=== PATIENT | female | born 2000 | race African-American/Black ===

== ENCOUNTER 2019-09-26 22:02 | Observation (INO) | payer OTHER, SELFPAY ==
[2019-09-26 22:11] VITALS: BP 132/80; PULSE 96; RESP 20; O2SAT 96
--- NOTE | 2019-09-26 22:19 | DI.US.S_ITS ---
PROCEDURE: US PELVIC COMPLETE INDICATIONS: BLEEDING, CRAMPING TECHNIQUE: Real-time scanning was performed of the pelvic organs, with image documentation. Additional endovaginal scanning was necessary due to incomplete visualization of the adnexal and endometrial structures by transabdominal scanning. COMPARISON: None. FINDINGS: Transabdominal scanning: Limited scanning through the kidneys shows no hydronephrosis. No pathologic free abdominal or pelvic fluid. Endovaginal scanning: Uterus: Uterus is normal in size at 6.6 x 3.2 x 5 cm. The endometrium measures 5-6 mm in combined thickness. There is a potential uterine fibroid seen, which is not well-defined. Ovaries: The right ovary measures 2.3 x 1.7 x 1.6 cm. The left ovary measures 2.2 x 1.2 x 1 cm. The ovaries have a normal sonographic appearance. No adnexal masses are seen. IMPRESSION: No imaging explanation is found for the patient's presenting symptoms. Potential uterine fibroid. Note: No significant discrepancy from the preliminary report. Dictated by: Adryan Hernandez M.D. on 09/27/2019 at 8:41 Approved by: Adryan Hernandez M.D. on 09/27/2019 at 8:44
[2019-09-26] MEDS: SODIUM CHLORIDE 0.9% 1,000 ML 1000 ML IV (22:24)
[2019-09-26 22:51] LABS: Add Manual Diff / Slide Review NO; Alanine Aminotransferase 16 IU/L (<35); Albumin 4.5 g/dL (3.5-5.0); Albumin Globulin Ratio 1.2 (1.0-2.8); Alkaline Phosphatase 67 U/L (38-126); Aspartate Aminotransferase 35 IU/L (14-36); BUN Creatinine Ratio 17.1 (6-22); Basophils Absolute Auto 0 /uL (0-100); Basophils Percent Auto 0.2 % (0-2); Bilirubin Total 0.2 mg/dL (0.2-1.3); Blood Urea Nitrogen 12 mg/dL (7-17); Calcium 10.1 mg/dL (8.4-10.2); Carbon Dioxide 20 mmol/L (22-32); Chloride 109 mmol/L (98-107); Eosinophils Absolute Auto 0 /uL (0-450); Eosinophils Percent Auto 0.1 % (2-4); Estimated Glomerular Filt Rate > 60.0 mL/min (>60); Globulin 3.8 g/dL (1.7-4.1); Glucose 85 mg/dL (70-100); HEMOLYSIS < 15 (0-50); Hematocrit 32.3 % (36-46); Hemoglobin 10.1 g/dL (12.0-16.0); Lymphocytes Absolute Auto 1100 /uL (1100-4500); Lymphocytes Percent Auto 7.3 % (25-40); Mean Corpuscular HGB Conc 31.2 % (30-36); Mean Corpuscular Hemoglobin 22.6 PG (26-34); Mean Corpuscular Volume 72.4 fL (80-100); Monocytes Absolute Auto 1000 /uL (0-900); Neutrophils Absolute Auto 12400 /uL (1500-7000); Neutrophils Percent Auto 85.4 % (50-75); Platelet Count 369 X10^3/uL (150-400); Red Blood Cell Count 4.46 X10^6/uL (4.0-5.2); Red Cell Distribution Width 17.5 % (11.6-14.8); Sodium 141 mmol/L (137-145); Total Protein 8.3 g/dL (6.3-8.2); White Blood Cell Count 14.6 X10^3/uL (4.5-11.0)
[2019-09-26] MEDS: CEFAZOLIN 2 GM/100 ML FROZ.PIGGY IV (23:33)
[2019-09-26 23:54] LABS: Bacteria Urine Few (2-10); Culture Indicated Urine Specimen Cultured; Mucus Urine 1+ (Negative); RBC Urine 30-100/HPF (0-5/HPF); WBC Urine 0-1/HPF (0-5/HPF)
[2019-09-27] VITALS (9 sets, daily range): BP systolic 106–131; BP diastolic 54–87; PULSE 74–100; RESP 8–18; TEMP 36.3–37.7; O2SAT 98–100; BMI 28.1
--- NOTE | 2019-09-27 00:15 | PM.GYNHP.1 ---
History of Present Illness History of Present Illness Narrative: Libia Mcmanus is a 19 year old G1 presenting to the ED with cramping pelvic pain and heavy bleeding after intercourse. The patient reports that she was having consensual sex when her symptoms began, and that she presented to the ED by ambulance 1.5 hours after her symptoms began. She reports nausea and right sided lower back pain in the ambulance that have now resolved, and she denies fevers, chills, dysuria, ongoing vaginal leakage, or any other symptoms or complaints. She denies any contributory progressive care nurse history including no STIs or pelvic infections, no progressive care nurse surgery, no ovarian cysts or uterine fibroids, and no contributory medical or surgical history. [facility] Social History Smoking Status: Current every day smoker Meds Home Medications and Allergies Allergies Allergy/AdvReac Type Severity Reaction Status Date / Time No Known Drug Allergies Allergy Verified 09/26/19 22:23 Review of Systems Constitutional Constitutional: Reports system reviewed and no additional complaints, except as documented Cardiovascular Cardiovascular: Reports system reviewed; no additional complaints, except as documented Respiratory Respiratory: Reports system reviewed and no additional complaints, except as documented Gastrointestinal Gastrointestinal: Reports as per HPI Genitourinary Genitourinary: Reports as per HPI Hematologic/Lymphatic Hematologic/Lymphatic: Reports as per HPI Exam Vital Signs (past 8 hours): - 09/26/19 22:11 Pulse Rate 96 H Respiratory Rate 20 Blood Pressure 132/80 Pulse Oximetry 96 Oxygen Delivery Method Room Air GI Palpation: soft, No firm, No guarding, No rigid and No tender External Female Exam: external appearance normal Speculum Exam - Vagina: vaginal laceration (large, 3cm long and 1+cm deep right sulcal tear) and vaginal bleeding (scant) Speculum Exam - Cervix: normal appearance of the cervix and nontender Bimanual Exam- Vagina & Uterus: No cervical tenderness and uterus non-tender Bimanual Exam- Adnexa, other: normal adnexae and adnexae non-tender OB/External & Speculum: vaginal bleeding (scant) Objective Labs Result Diagrams: 09/27/19 00:15 09/26/19 22:30 Labs: Laboratory Results - last 24 hr 09/26/19 09/26/19 09/26/19 22:30 22:30 23:20 WBC 14.6 H RBC 4.46 Hgb 10.1 L Hct 32.3 L MCV 72.4 L MCH 22.6 L MCHC 31.2 RDW 17.5 H Plt Count 369 Neut % (Auto) 85.4 H Lymph % (Auto) 7.3 L [place] % (Auto) 7.0 Eos % (Auto) 0.1 L Baso % (Auto) 0.2 Neut # (Auto) 34726 H Lymph # (Auto) 1100 [place] # (Auto) 1000 H Eos # (Auto) 0 Baso # (Auto) 0 Sodium 141 Potassium 4.0 Chloride 109 H Carbon Dioxide 20 L BUN 12 Creatinine 0.70 Estimated GFR > 60.0 BUN/Creatinine Ratio 17.1 Glucose 85 Calcium 10.1 Total Bilirubin 0.2 AST 35 ALT 16 Alkaline Phosphatase 67 Total Protein 8.3 H Albumin 4.5 Globulin 3.8 Albumin/Globulin Ratio 1.2 Urine RBC 30-100/hpf H Urine WBC 0-1/hpf Urine Bacteria Few (2-10) H Urine Mucus 1+ H Ur Culture Indicated? Specimen cultured Micro UA Comment * Assessment & Plan Assessment & Plan narrative: Though the patient is not currently having large amounts of visible vaginal bleeding, the extent of her laceration and especially the depth of extension cannot be assessed adequately at bedside due to patient discomfort with exam. The potential for ongoing hematoma formation or growth or extension into surrounding pelvic structures necessitates examination under anesthesia. If no such extension is found, anticipate laceration repair, vaginal packing, and admission for serial H&H. The patient was counselled that laparoscopy or laparotomy may be necessary if other pelvic structures such as bladder or bowel are found to be involved, and vocalized understanding of the risks and benefits of these procedures. All questions were answered. - Patient receiving Ancef in ED prior to OR - NPO - IV fluids
[2019-09-27 00:21] LABS: Hematocrit 29.8 % (36-46); Hemoglobin 9.2 g/dL (12.0-16.0)
[2019-09-27] MEDS: LACTATED RINGERS 1,000 ML 100 ML IV (01:00)
--- NOTE | 2019-09-27 01:06 | ED_ITS ---
HPI - Female Genitourinary General Chief complaint: Vaginal Bleeding Stated complaint: Dizzy, Nausea Time Seen by Provider: 09/26/19 22:05 Source: patient and EMS Mode of arrival: EMS Limitations: no limitations History of Present Illness HPI Narrative: 19F non smoker without significant medical history presents by EMS for evaluation of severe pelvic pain and heavy vaginal bleeding after sexual intercourse about 90 minutes prior to her arrival. She states she is not routinely sexually active and had intercourse with a male whom at a very large penis. She states she felt a sudden severe pain followed by significant bleeding, the pain radiated to her back. She takes no blood thinners and denies no abdominal pain. She has been a bit nauseated and has felt somewhat lightheaded. MD Complaint: vaginal bleeding Onset (ago): minute(s) Location: other Severity: moderate Quality: Sharp Duration: intermittent Relieving factors: none Exacerbating factors: intercourse Vaginal discharge: blood Sexual activity: New Sexual Partners Patient : No Associated symptoms: denies other symptoms Related Data Allergies Allergy/AdvReac Type Severity Reaction Status Date / Time No Known Drug Allergies Allergy Verified 09/26/19 22:23 Review of Systems Constitutional Constitutional: Denies chills, Denies fatigue, Denies fever(s), Denies frequent falls, Denies lethargy and Reports weakness Eyes Eyes: Denies change in vision, Denies eye discharge, Denies irritation and Denies loss of vision ENT Ears, Nose, Mouth, and Throat: Denies change in voice, Denies dizziness, Denies neck pain, Denies sore throat and Denies throat swelling Cardiovascular Cardiovascular: Denies chest pain, Denies irregular heart rhythm, Denies lightheadedness, Denies palpitations, Denies dyspnea, Denies dyspnea on exertion and Denies orthopnea Respiratory Respiratory: Denies cough, Denies dyspnea, Denies dyspnea on exertion and Denies wheezing Gastrointestinal Gastrointestinal: Denies abdominal pain, Denies change in bowel habits, Denies diarrhea, Denies nausea and Denies vomiting Genitourinary Genitourinary: Reports abnormal vaginal bleeding, Denies hematuria, Denies flank pain, Denies urinary incontinence and Denies urinary urgency Musculoskeletal Musculoskeletal: Denies back pain, Denies muscle weakness, Denies neck pain, Denies numbness and Denies tingling Integumentary/Breasts Skin/Breast: Denies pruritus, Denies erythema, Denies rash and Denies wounds Neurologic Neurologic: Denies behavioral changes, Denies confusion, Denies dizziness, Denies frequent falls, Denies loss of vision, Denies numbness, Denies tingling and Reports weakness Psychiatric Psychiatric: Denies anxiety, Denies behavioral changes, Denies confusion, Denies depression, Denies homicidal ideation and Denies suicidal ideation Endocrine Endocrine: Denies fatigue, Denies flushing and Denies palpitations Hematologic/Lymphatic Hematologic/Lymphatic: Denies easy bruising Allergic/Immunologic Allergic/Immunologic: Denies urticaria, Denies throat swelling and Denies wheezing Patient History Substance Use Type: does not use Exam Narrative Exam Narrative: GENERAL: [19] year old patient appears stated age. Well- nourished, well-developed patient, in mild distress. HEAD: Atraumatic. Normocephalic. EYES: Pupils equal round and reactive. Extraocular motions intact. No scleral icterus. No injection or drainage. ENT: Nose without bleeding, purulent drainage. Throat without erythema, tonsillar hypertrophy or exudate. Airway patent. NECK: Trachea midline. Non tender CARDIOVASCULAR: Regular rate and rhythm without murmurs, gallops, or rubs. RESPIRATORY: Clear to auscultation. Breath sounds equal bilaterally. No wheezes, rales, or rhonchi. GASTROINTESTINAL: Abdomen soft, non-tender, nondistended. : Pelvic performed with patient's permission and female nursing agriculture laboratory technician at bedside. There is minimal bleeding and some fresh clot, source is apparently a 3 cm laceration with minimal active bleeding in posterior R fornix EXTREMITIES: No edema or joint tenderness. BACK: Nontender without deformity or crepitance. No flank tenderness. NEURO: AOx3. SKIN: No rash or erythema of visible areas Initial Vital Signs Initial Vital Signs: Vital Signs Pulse Rate 96 H 09/26/19 22:11 Respiratory Rate 20 09/26/19 22:11 Blood Pressure 132/80 09/26/19 22:11 Pulse Oximetry 96 09/26/19 22:11 Course Orders Ordered: ED Orders 09/26/19 22:19 US pelvic complete Stat 09/26/19 22:30 Complete Blood Count AUTO DIFF Stat Comprehensive Metabolic Panel Stat 09/26/19 23:20 Urine Culture Stat Urine Microscopic Stat 09/27/19 00:15 Hemoglobin and Hematocrit Stat Type and Screen Stat Lactated Ringer's (Lactated Ringers) 1,000 mls @ 100 mls/hr IV CONT JESSICA Lactated Ringer's (Lactated Ringers) 1,000 mls @ 42 mls/hr IV CONT JESSICA Discontinued Medications Sodium Chloride (Normal Saline 0.9%) 1,000 mls @ 1,000 mls/hr IV BOLUS ONE Stop: 09/26/19 23:18 Last Infusion: 09/26/19 23:41 Dose: 0 mls/hr Documented by: Infusion: 09/26/19 22:48 Dose: 1,000 mls/hr Documented by: Infusion: 09/26/19 22:24 Dose: 0 mls/hr Documented by: Admin: 09/26/19 22:24 Dose: 1,000 mls/hr Documented by: LAVERN Cefazolin Sodium/Dextrose (Ancef) 2 gm in 100 mls @ 200 mls/hr IV NOW ONE Stop: 09/26/19 23:58 Last Infusion: 09/27/19 00:05 Dose: 0 mls/hr Documented by: Admin: 09/26/19 23:33 Dose: 200 mls/hr Documented by: OSCAR Consultations Consultation #1: call to customer service professional OB ([place]) to discuss plans. She will come see patient at bedside and perform her own exam. After which she elects to take to the OR for exam under anesthesia Vital Signs Vital signs: Vital Signs - 8 hr 09/26/19 22:11 Pulse Rate 96 H Respiratory Rate 20 Blood Pressure 132/80 Pulse Oximetry 96 MDM - Female Genitourinary Lab Data Result diagrams: 09/27/19 00:15 09/26/19 22:30 Labs: Lab Results 09/26/19 09/26/19 09/26/19 Range/Units 22:30 22:30 23:20 WBC 14.6 H (4.5-11.0) X10^3/uL RBC 4.46 (4.0-5.2) X10^6/uL Hgb 10.1 L (12.0-16.0) g/dL Hct 32.3 L (36-46) % MCV 72.4 L (80-100) fL MCH 22.6 L (26-34) PG MCHC 31.2 (30-36) % RDW 17.5 H (11.6-14.8) % Plt Count 369 (150-400) X10^3/uL Neut % (Auto) 85.4 H (50-75) % Lymph % (Auto) 7.3 L (25-40) % [place] % (Auto) 7.0 (3-14) % Eos % (Auto) 0.1 L (2-4) % Baso % (Auto) 0.2 (0-2) % Neut # (Auto) 03627 H (7207-3538) /uL Lymph # (Auto) 1100 (6246-7968) /uL [place] # (Auto) 1000 H (0-900) /uL Eos # (Auto) 0 (0-450) /uL Baso # (Auto) 0 (0-100) /uL Sodium 141 (137-145) mmol/L Potassium 4.0 (3.4-5.1) mmol/L Chloride 109 H (98-107) mmol/L Carbon Dioxide 20 L (22-32) mmol/L BUN 12 (7-17) mg/dL Creatinine 0.70 (0.52-1.04) mg/dL Estimated GFR > 60.0 (>60) mL/min BUN/Creatinine Ratio 17.1 (6-22) Glucose 85 (70-100) mg/dL Calcium 10.1 (8.4-10.2) mg/dL Total Bilirubin 0.2 (0.2-1.3) mg/dL AST 35 (14-36) IU/L ALT 16 (<35) IU/L Alkaline Phosphatase 67 (38-126) U/L Total Protein 8.3 H (6.3-8.2) g/dL Albumin 4.5 (3.5-5.0) g/dL Globulin 3.8 (1.7-4.1) g/dL Albumin/Globulin Ratio 1.2 (1.0-2.8) Urine RBC 30-100/hpf H (0-5/HPF) Urine WBC 0-1/hpf (0-5/HPF) Urine Bacteria Few (2-10) H (None) Urine Mucus 1+ H (Negative) Ur Culture Indicated? Specimen cultured Micro UA Comment * Blood Type 09/27/19 09/27/19 Range/Units 00:15 00:15 WBC (4.5-11.0) X10^3/uL RBC (4.0-5.2) X10^6/uL Hgb 9.2 L (12.0-16.0) g/dL Hct 29.8 L (36-46) % MCV (80-100) fL MCH (26-34) PG MCHC (30-36) % RDW (11.6-14.8) % Plt Count (150-400) X10^3/uL Neut % (Auto) (50-75) % Lymph % (Auto) (25-40) % [place] % (Auto) (3-14) % Eos % (Auto) (2-4) % Baso % (Auto) (0-2) % Neut # (Auto) (5417-6929) /uL Lymph # (Auto) (4255-2595) /uL [place] # (Auto) (0-900) /uL Eos # (Auto) (0-450) /uL Baso # (Auto) (0-100) /uL Sodium (137-145) mmol/L Potassium (3.4-5.1) mmol/L Chloride (98-107) mmol/L Carbon Dioxide (22-32) mmol/L BUN (7-17) mg/dL Creatinine (0.52-1.04) mg/dL Estimated GFR (>60) mL/min BUN/Creatinine Ratio (6-22) Glucose (70-100) mg/dL Calcium (8.4-10.2) mg/dL Total Bilirubin (0.2-1.3) mg/dL AST (14-36) IU/L ALT (<35) IU/L Alkaline Phosphatase (38-126) U/L Total Protein (6.3-8.2) g/dL Albumin (3.5-5.0) g/dL Globulin (1.7-4.1) g/dL Albumin/Globulin Ratio (1.0-2.8) Urine RBC (0-5/HPF) Urine WBC (0-5/HPF) Urine Bacteria (None) Urine Mucus (Negative) Ur Culture Indicated? Micro UA Comment Blood Type A Positive Point of Care Testing Test Results Negative Urine Dip Bedside Urine Glucose 100 mg/dl Bedside Urine Bilirubin - Negative Bedside Urine Ketone +/- 5 Urine Specific [place] 1.025 Bedside Urine Occult Blood +++ Bedside Urine pH 6.0 Bedside Urine Protein +/- 15 Bedside Urine Urobilinogen - Negative Bedside Urine Nitrite - Negative Bedside Urine Leukocytes +/- 15 Esterase Discharge Plan Departure Patient Disposition: Admitted as Observation Clinical Impression: PCB (post coital bleeding), Vaginal laceration Admit Date/Time: 09/27/19 00:30 Admit Provider: Roxanne Ba
--- NOTE | 2019-09-27 01:28 | SUR.OPER ---
Lithotomy on padded OR bed, head on pillow, arms secured on padded arm boards at <90 degrees abduction. Legs secured in padded yellow fins stirrups.
[2019-09-27] MEDS: SILVER NITRATE STICK 1 EACH TOP (01:48)
--- NOTE | 2019-09-27 02:04 | PM.OP.1 ---
Operative Date/Time/Diagnoses Date of procedure: 09/27/19 Time of procedure: 01:15 Pre-op diagnosis: Post coital vaginal laceration Post-op diagnosis: same Procedure & Clinicians Procedure: Exam under anesthesia with laceration repair Same procedure as scheduled: Yes Indications: Ongoing bleeding from vaginal laceration Surgeon: Roxanne Ba Click Yes if Unassisted: Yes Anesthesia Type: General Operative Notes Findings: 3 cm long by 1 cm deep laceration through vaginal mucosa of right vaginal sulcus, light ongoing bleeding.. Palpable to extent of laceration, no extension into peritoneum, bowel, bladder. Scattered first-degree lacerations and mucosal abrasions, all hemostatic. Closure Type: primary Specimen(s): none sent Applied: catheter Estimated Blood Loss (mL): 10 Blood products transfused: none Procedure in detail: After proper consents were obtained, the patient was taken to the operating room where general anesthesia was obtained. She was prepped and draped in the normal sterile fashion in the dorsal lithotomy position. Right angle retractors were used to obtain visualization of the above laceration, and the general shape and locations requiring hemostasis were noted. 2-0 [address] was used to place 3 interrupted sutures in the deep part of the laceration, with good subsequent hemostasis. One area of mucosal edge was noted to be oozing and hemostasis was obtained with silver nitrate. Pressure was applied with sponge sticks. After hemostasis was noted to have been obtained, a Brandt catheter was placed in the bladder, and 1 inch iodoform gauze packing placed in the vagina. The patient tolerated the procedure well, and was taken to the PACU in stable condition. The patient had received Ancef prophylaxis in the emergency room prior to transfer. Complications: none Post-operative Condition: stable Disposition: Acute Care Plan for aftercare: Vaginal packing and brandt catheter until midday, serial CBCs
--- NOTE | 2019-09-27 02:19 | SUR.PHASEI ---
Dr. Marquez notified regarding mild ST elevation. No new orders.
--- NOTE | 2019-09-27 02:28 | SUR.PHASEI ---
Report called to Joan
--- NOTE | 2019-09-27 02:47 | SUR.PHASEI ---
Patient transferred to the floor with belongings bag, and valuables bag with wallet and phone. VS stable. Report given to Joan. IV saline locked. Dorie-pad CDI, packing in place. Patient had asked how she was to tell him that she couldn't have sex. Patient denied being in a relationship, stated she was not forced to have sex. Joan notified.
--- NOTE | 2019-09-27 03:40 | PC.NURSE ---
Admitted from, PACU, diagnosed with vaginal laceration & repair. Denies any pain & peir pad CDI, no bleeding noted. [place] patent clear yellow urine. Oriented to her room, showed how to use her call light TV & bed controls. Instructed not get OOB without any assistance. Call light within reached, willl COnt. POc & monitor.
[2019-09-27 07:03] LABS: Hematocrit 28.8 % (36-46); Hemoglobin 9.1 g/dL (12.0-16.0)
[2019-09-27 07:53] LABS: HEMOLYSIS < 15 (0-50); Iron 22 ug/dL (37-170)
[2019-09-27 08:03] LABS: Percent Iron Saturation 5 % (15-50); Total Iron Binding Capacity 453 ug/dL (265-497); Transferrin 403 mg/dL (206-381)
[2019-09-27] MEDS: SODIUM CHLORIDE 0.9% FLUSH 10 ML IV (09:46)
--- NOTE | 2019-09-27 12:00 | PM.PNPO.1 ---
Subjective Subjective Date Patient Seen: 09/27/19 Time Patient Seen: 12:00 Interval history: Patient reports feeling well this AM, is tolerating PO, ambulating, passing flatus, denies abdominal pain, fevers, chills, diarrhea, chest pain, or any other complaints. Patient reports a long history of anemia symptoms, has never been evaluated for hemoglobinopathy. Discussed events surrounding laceration with patient, and patient reiterates that she was having consensual sex. We discussed resources should her sexual activity be coerced, discussed the importance of lubricant and foreplay to female sexual function and health, and discussed that she should have nothing in the vagina for 4 weeks and precautions for return. Exam Vital Signs (past 8 hours): - 09/27/19 04:35 09/27/19 05:05 09/27/19 05:35 Temperature 99.8 F H Pulse Rate 86 78 77 Respiratory Rate 16 16 18 Blood Pressure 107/64 115/60 111/54 L Pulse Oximetry 98 98 99 09/27/19 08:00 Temperature 97.9 F Pulse Rate 84 Respiratory Rate 16 Blood Pressure 131/74 Pulse Oximetry 99 Oxygen Delivery Method Room Air Oxygen Flow Rate 0 Const General: cooperative, healthy appearing and comfortable GI Palpation: soft and No tender External Female Exam: external appearance normal Other: Packing removed, minimally saturated. [place] catheter removed. No ongoing vaginal bleeding. Objective Labs Result Diagrams: 09/27/19 06:55 09/26/19 22:30 Labs: Laboratory Results - last 24 hr 09/26/19 09/26/19 09/26/19 22:30 22:30 22:30 WBC 14.6 H RBC 4.46 Hgb 10.1 L Hct 32.3 L MCV 72.4 L MCH 22.6 L MCHC 31.2 RDW 17.5 H Plt Count 369 Neut % (Auto) 85.4 H Lymph % (Auto) 7.3 L [place] % (Auto) 7.0 Eos % (Auto) 0.1 L Baso % (Auto) 0.2 Neut # (Auto) 13403 H Lymph # (Auto) 1100 [place] # (Auto) 1000 H Eos # (Auto) 0 Baso # (Auto) 0 Sodium 141 Potassium 4.0 Chloride 109 H Carbon Dioxide 20 L BUN 12 Creatinine 0.70 Estimated GFR > 60.0 BUN/Creatinine Ratio 17.1 Glucose 85 Calcium 10.1 Iron 22 L TIBC 453 % Saturation 5 L Transferrin 403 H Total Bilirubin 0.2 AST 35 ALT 16 Alkaline Phosphatase 67 Total Protein 8.3 H Albumin 4.5 Globulin 3.8 Albumin/Globulin Ratio 1.2 Urine RBC Urine WBC Urine Bacteria Urine Mucus Ur Culture Indicated? Micro UA Comment Blood Type Antibody Screen 09/26/19 09/27/19 09/27/19 23:20 00:15 00:15 WBC RBC Hgb 9.2 L Hct 29.8 L MCV MCH MCHC RDW Plt Count Neut % (Auto) Lymph % (Auto) [place] % (Auto) Eos % (Auto) Baso % (Auto) Neut # (Auto) Lymph # (Auto) [place] # (Auto) Eos # (Auto) Baso # (Auto) Sodium Potassium Chloride Carbon Dioxide BUN Creatinine Estimated GFR BUN/Creatinine Ratio Glucose Calcium Iron TIBC % Saturation Transferrin Total Bilirubin AST ALT Alkaline Phosphatase Total Protein Albumin Globulin Albumin/Globulin Ratio Urine RBC 30-100/hpf H Urine WBC 0-1/hpf Urine Bacteria Few (2-10) H Urine Mucus 1+ H Ur Culture Indicated? Specimen cultured Micro UA Comment * Blood Type A Positive Antibody Screen Negative 09/27/19 06:55 WBC RBC Hgb 9.1 L Hct 28.8 L MCV MCH MCHC RDW Plt Count Neut % (Auto) Lymph % (Auto) [place] % (Auto) Eos % (Auto) Baso % (Auto) Neut # (Auto) Lymph # (Auto) [place] # (Auto) Eos # (Auto) Baso # (Auto) Sodium Potassium Chloride Carbon Dioxide BUN Creatinine Estimated GFR BUN/Creatinine Ratio Glucose Calcium Iron TIBC % Saturation Transferrin Total Bilirubin AST ALT Alkaline Phosphatase Total Protein Albumin Globulin Albumin/Globulin Ratio Urine RBC Urine WBC Urine Bacteria Urine Mucus Ur Culture Indicated? Micro UA Comment Blood Type Antibody Screen Assessment & Plan Post-op Postoperative Procedures: Procedures Operation Date: 09/27/19 00:45 Actual Procedures Side Surgeon p Exam under anesthesia, Vaginal laceration repair Roxanne Ba MD Postoperative day: 1 Postoperative status: doing well and anemia Postoperative status narrative: This patient is doing well postoperatively, meeting goals and undergoing a voiding trial. Patients hgb is stable, and she reports a long history of anemia on discussion this AM. Mildly iron deficient, Hgb EE added on and to be discussed at outpatient follow up. Precautions for healing and for return discussed. Postoperative plan: routine post-op care, ambulate, voiding trials and discharge Time Spent With Patient Time with patient: 25 - 35 minutes Quality VTE Deep Vein Thrombosis/Pulmonary Embolism Present on Admission: No
--- NOTE | 2019-09-27 12:06 | PM.DS.1 ---
History of Present Illness History of Present Illness Date Patient Seen: 09/27/19 Time Patient Seen: 11:40 Chief complaint: Dizzy, Nausea Narrative: This patient is a 19yo G0 admitted after heavy vaginal bleeding due to a postcoital vaginal laceration. She was taken for exam under anesthesia, where it was established that the laceration did not extend into the peritoneal cavity or surrounding organs and the laceration was repaired with vicryl. The patient remained in house overnight with packing and brandt in place, had stable vitals and a stable hgb, and was discharged home with precautions on POD#1 after passing a VT. Discharge Providers Provider Date of admission: 09/27/19 00:30 Discharge Date: 09/27/19 Consults: 09/27/19 02:43 Consult to Discharge Planning Routine Comment: Discharge provider: Roxanne Ba MD Summary Status at Discharge Cognitive/behavioral status at discharge: oriented and at baseline, oriented Functional status at discharge: independent ambulation Overall status at discharge: patient is back to baseline Time Spent with Patient Time spent: Greater than 30 minutes Exam Vital Signs (past 8 hours): - 09/27/19 04:35 09/27/19 05:05 09/27/19 05:35 Temperature 99.8 F H Pulse Rate 86 78 77 Respiratory Rate 16 16 18 Blood Pressure 107/64 115/60 111/54 L Pulse Oximetry 98 98 99 09/27/19 08:00 Temperature 97.9 F Pulse Rate 84 Respiratory Rate 16 Blood Pressure 131/74 Pulse Oximetry 99 Oxygen Delivery Method Room Air Oxygen Flow Rate 0 Objective Labs Result Diagrams: 09/27/19 06:55 09/26/19 22:30 Labs: Laboratory Results - last 24 hr 09/26/19 09/26/19 09/26/19 22:30 22:30 22:30 WBC 14.6 H RBC 4.46 Hgb 10.1 L Hct 32.3 L MCV 72.4 L MCH 22.6 L MCHC 31.2 RDW 17.5 H Plt Count 369 Neut % (Auto) 85.4 H Lymph % (Auto) 7.3 L [place] % (Auto) 7.0 Eos % (Auto) 0.1 L Baso % (Auto) 0.2 Neut # (Auto) 65827 H Lymph # (Auto) 1100 [place] # (Auto) 1000 H Eos # (Auto) 0 Baso # (Auto) 0 Sodium 141 Potassium 4.0 Chloride 109 H Carbon Dioxide 20 L BUN 12 Creatinine 0.70 Estimated GFR > 60.0 BUN/Creatinine Ratio 17.1 Glucose 85 Calcium 10.1 Iron 22 L TIBC 453 % Saturation 5 L Transferrin 403 H Total Bilirubin 0.2 AST 35 ALT 16 Alkaline Phosphatase 67 Total Protein 8.3 H Albumin 4.5 Globulin 3.8 Albumin/Globulin Ratio 1.2 Urine RBC Urine WBC Urine Bacteria Urine Mucus Ur Culture Indicated? Micro UA Comment Blood Type Antibody Screen 09/26/19 09/27/19 09/27/19 23:20 00:15 00:15 WBC RBC Hgb 9.2 L Hct 29.8 L MCV MCH MCHC RDW Plt Count Neut % (Auto) Lymph % (Auto) [place] % (Auto) Eos % (Auto) Baso % (Auto) Neut # (Auto) Lymph # (Auto) [place] # (Auto) Eos # (Auto) Baso # (Auto) Sodium Potassium Chloride Carbon Dioxide BUN Creatinine Estimated GFR BUN/Creatinine Ratio Glucose Calcium Iron TIBC % Saturation Transferrin Total Bilirubin AST ALT Alkaline Phosphatase Total Protein Albumin Globulin Albumin/Globulin Ratio Urine RBC 30-100/hpf H Urine WBC 0-1/hpf Urine Bacteria Few (2-10) H Urine Mucus 1+ H Ur Culture Indicated? Specimen cultured Micro UA Comment * Blood Type A Positive Antibody Screen Negative 09/27/19 06:55 WBC RBC Hgb 9.1 L Hct 28.8 L MCV MCH MCHC RDW Plt Count Neut % (Auto) Lymph % (Auto) [place] % (Auto) Eos % (Auto) Baso % (Auto) Neut # (Auto) Lymph # (Auto) [place] # (Auto) Eos # (Auto) Baso # (Auto) Sodium Potassium Chloride Carbon Dioxide BUN Creatinine Estimated GFR BUN/Creatinine Ratio Glucose Calcium Iron TIBC % Saturation Transferrin Total Bilirubin AST ALT Alkaline Phosphatase Total Protein Albumin Globulin Albumin/Globulin Ratio Urine RBC Urine WBC Urine Bacteria Urine Mucus Ur Culture Indicated? Micro UA Comment Blood Type Antibody Screen Discharge Plan Discharge Plan Patient Disposition: Home Discharge orders & Medications Prescriptions: No Action No Known Home Medications RF: 0 Follow up/Referrals: Roxanne Ba MD [Physician] - 1 Month Diet/Activity/Treatments Diet: Regular Activity: Nothing in the vagina for 4 weeks. If you develop increasing bleeding, fevers, chills, nausea, vomiting, abdominal pain, vaginal discharge, or any other symptoms, call or come to the ED. Skin/Wound/Dressing Care Report to your healthcare provider any signs of infection, such as:: chills, fever, night sweats, increased pain, unusual drainage and unusual redness Visit Report/Discharge Packet Instructions: DI for Vulvo-vaginal Tears Discharge Data Attending Provider: Roxanne Ba Admit Date/Time: 09/27/19 00:30 Discharges patient from system. Discharge Date/Time: 09/27/19 13:15 Quality VTE Deep Vein Thrombosis/Pulmonary Embolism Present on Admission: No
--- NOTE | 2019-09-27 12:28 | CM.DANOTE ---
DCP Brief Assessment Note Patient is a 19 year old female who was admitted on 09/27/19 for Dizziness and Nausea. Pt has [employer] for insurance and her PCP is on the [facility]. EMR was reviewed. Per OB-REFRIGERATION SUPERVISOR, pt with post coital vaginal laceration bleeding that needed packing and pt now medically stable to d/c home with no identified barriers to discharge. Per RN, no concerns at this time and friend to transport. Plan: Patient to d/c back home to [place] today via friend POV and no SW needs at this time. ANICETO Frances
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
== END 2019-09-27 13:15 | disposition home or self-care (01) ==
LOC: ED 22:12 → AC 09-27 00:31
PROVIDERS: Admitting Provider Obstetrics & Gynecology; Emergency Provider Emergency Medicine; Visit Provider Obstetrics & Gynecology
PROC: (CPT 57200; principal; 2019-09-27 00:45)
DX: S31.41XA Laceration without foreign body of vagina and vulva, initial encounter (principal); N93.0 Postcoital and contact bleeding; F17.210 Nicotine dependence, cigarettes, uncomplicated
CPT/HCPCS: 57200; 36415; 76830; 76856; 80053; 81003; 81015; 81025; 83540; 83550; 85014; 85018; 85025; 86850; 86880; 86900; 86901; 87086; 96361; 96365; 99284; G0378; J0330; J0690; J1885; J2405; J2704; J3010

== ENCOUNTER 2020-02-17 14:11 | Emergency (ER) | payer OTHER, SELFPAY ==
[2019-09-27 02:43] VITALS: BMI 28.1
[2020-02-17 14:23] VITALS: BP 123/86; PULSE 87; RESP 22; TEMP 37; O2SAT 99
--- NOTE | 2020-02-17 15:31 | PC.NURSE ---
No SLATE ROOFER available for exam. This RN called [facility] Emergency department, closest ED, they stated they had a SLATE ROOFER available. Discussed transportation with Michaela TRIPP, She stated to discharge that patient and send private vehicle. This RN agreed to patient care plan. Notified Provider of plan, she was agreeable.
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
== END 2020-02-17 15:34 | disposition home or self-care (01) ==
PROVIDERS: Emergency Provider Nurse Practitioner Family
DX: T76.21XA Adult sexual abuse, suspected, initial encounter (principal)
CPT/HCPCS: 99281; 99282